=== PATIENT | female | born 1955 | race African-American/Black ===

== ENCOUNTER 2018-04-01 07:30 | Inpatient (IN) | payer OTHER, MEDICAID ==
[2018-04-01] VITALS (16 sets, daily range): BP systolic 93–235; BP diastolic 39–167
[~2018-04-01] VITALS: Ht 180.3 cm; Wt 137.9 kg
[2018-04-01] MEDS ORDERED: LACTATED RINGERS 1,000 ML IV SCH (10:15)
[2018-04-01 10:23] LABS: INR 1.1; PARTIAL THROMBOPLASTIN TIME 25.6 sec (23.4-31.0); PROTHROMBIN TIME 10.7 sec (9.1-11.1)
[2018-04-01] MEDS ORDERED: GELATIN SPONGE,COMPRESSED SZ 100 ONE (11:28)
[2018-04-01] MEDS ORDERED: BACITRACIN 50,000 UNITS/VIAL ONE (11:28)
[2018-04-01] MEDS ORDERED: THROMBIN (BOVINE) 5000 UNITS/VIAL TOP ONE (11:28)
[2018-04-01] MEDS ORDERED: NORMAL SALINE 0.9% 10 ML SYR ONE (11:28)
[2018-04-01] MEDS ORDERED: LIDOCAINE HCL/EPINEPHRINE 1%-EPI 1:100,000 20 ML VIAL ONE (11:28)
[2018-04-01] MEDS ORDERED: MORPHINE SULFATE 2 MG/ML CPJ (NOT FOR IM USE) IV PRN (12:15)
[2018-04-01] MEDS ORDERED: MIDAZOLAM HCL 2 MG/2 ML VIAL ONE (12:25)
[2018-04-01] MEDS ORDERED: FENTANYL CITRATE/PF 50MCG/ML 5ML VIAL ONE (12:25)
[2018-04-01] MEDS ORDERED: ROCURONIUM BROMIDE 10MG/ML VIAL 5ML IV ONE ×2 (12:25→12:59)
[2018-04-01] MEDS ORDERED: PROPOFOL 200MG/20ML VIAL IV ONE (12:25)
[2018-04-01] MEDS ORDERED: METOCLOPRAMIDE HCL 10MG/2ML VIAL ONE (12:57)
[2018-04-01] MEDS ORDERED: LIDOCAINE HCL/PF 1% 10 MG/ML 5ML VIAL ONE (12:57)
[2018-04-01] MEDS ORDERED: CEFAZOLIN SODIUM 1000MG/VIAL ONE (12:57)
[2018-04-01] MEDS ORDERED: DEXAMETHASONE 4MG/ML 1ML VIAL ONE (12:57)
[2018-04-01] MEDS ORDERED: HYDROMORPHONE HCL/PF 2MG/ML (OR) ONE (13:10)
[2018-04-01] MEDS ORDERED: GABA-290 PO (13:14)
[2018-04-01] MEDS ORDERED: FLUT16SP15 BOTHNSTRLS (13:14)
[2018-04-01] MEDS ORDERED: MAX PO (13:14)
[2018-04-01] MEDS ORDERED: AMLO5TAB88 PO (13:14)
[2018-04-01] MEDS ORDERED: ATOR10TA69 PO (13:14)
[2018-04-01] MEDS ORDERED: ALBU90AE IH (13:14)
[2018-04-01] MEDS ORDERED: CYCL10TA7 PO (13:14)
[2018-04-01] MEDS ORDERED: TRAM50TA3 PO (13:14)
[2018-04-01] MEDS ORDERED: BUPR75TA8 PO (13:14)
[2018-04-01] MEDS ORDERED: CETI10TA6 PO (13:14)
[2018-04-01] MEDS ORDERED: CEFAZOLIN SODIUM 1000MG/VIAL IV SCH (14:00)
[2018-04-01] MEDS ORDERED: GLYCOPYRROLATE 0.2 MG/ML 2ML VIAL ONE ×2 (14:41→15:15)
[2018-04-01] MEDS ORDERED: NEOSTIGMINE METHYLSULFATE 1MG/ML 10 ML VIAL ONE (14:41)
[2018-04-01] MEDS ORDERED: FENTANYL CITRATE/PF 50MCG/ML 2ML VIAL IV PRN (15:00)
[2018-04-01] MEDS ORDERED: ONDANSETRON HCL 4MG/2ML INJ IV PRN ×2 (15:00→16:30)
[2018-04-01] MEDS ORDERED: NALOXONE INJ IV PRN (16:15)
[2018-04-01] MEDS ORDERED: ONDANSETRON INJ IV PRN (16:15)
[2018-04-01] MEDS ORDERED: HYDROMORPHONE PCA 10MG/50ML IV PRN (16:15)
[2018-04-01 18:16] LABS: BG BASE EXCESS 2.5 mmol/L (-2.0-2.0); BG CARBOXYHEMOGLOBIN 0.4 % (0.5-1.5); BG DEOXYHEMOGLOBIN 3.4 % (0.0-5.0); BG FRACTION INSPIRED OXYGEN 50; BG HCO3 ACT 29.1 mmol/L (22.0-26.0); BG METHEMOGLOBIN 0.3 % (0.0-1.5); BG OXYGEN SATURATION 96.6 % (92.0-98.5); BG OXYHEMOGLOBIN 95.9 % (94.0-97.0); BG PCO2 53.8 mmHg (35.0-45.0); BG PH 7.351 (7.350-7.450); BG PO2 98.8 mmHg (75.0-100.0); BG PRESSURE SUPPORT 5; BG SAMPLE SITE RIGHT RADIAL; BG TOTAL HEMOGLOBIN 13.1 g/dL (12.0-18.0); BG VENT MODE VENT - CPAP
[2018-04-01] MEDS ORDERED: CEFAZOLIN 1000MG PREMIX 50 ML IV NR (19:00)
[2018-04-01] MEDS: CEFAZOLIN 1000MG PREMIX 50 ML IV SCH (22:30)
[2018-04-01] MEDS: DEXT 5%/LACTATED RINGERS 1,000 ML IV SCH (22:31)
[2018-04-02] VITALS (49 sets, daily range): BP systolic 85–173; BP diastolic 45–105
[2018-04-02] MEDS: CEFAZOLIN 1000MG PREMIX 50 ML IV SCH ×3 (04:48→20:55)
[2018-04-02] MEDS: DEXT 5%/LACTATED RINGERS 1,000 ML IV SCH ×2 (10:03→20:55)
[2018-04-02 12:23] LABS: BG BASE EXCESS 6.5 mmol/L (-2.0-2.0); BG CARBOXYHEMOGLOBIN 0.3 % (0.5-1.5); BG CPAP (cmH2O) 0 cm(H2O); BG DEOXYHEMOGLOBIN 3.2 % (0.0-5.0); BG HCO3 ACT 31.2 mmol/L (22.0-26.0); BG METHEMOGLOBIN 0.3 % (0.0-1.5); BG OXYGEN SATURATION 96.8 % (92.0-98.5); BG OXYHEMOGLOBIN 96.2 % (94.0-97.0); BG PCO2 45.2 mmHg (35.0-45.0); BG PH 7.457 (7.350-7.450); BG PO2 93.4 mmHg (75.0-100.0); BG PRESSURE SUPPORT 5; BG SAMPLE SITE RIGHT RADIAL; BG TOTAL HEMOGLOBIN 12.1 g/dL (12.0-18.0); BG VENT MODE VENT - CPAP
[2018-04-02] MEDS: AZITHROMYCIN 500 MG in DEXT 5% WATER 250 ML IV SCH (12:27)
[2018-04-02 15:44] LABS: CHLORIDE 101 mEq/L (98-107)
[2018-04-02 15:48] LABS: BASOPHILS % 0.2 % (0.0-2.0); EOSINOPHILS % 0.3 % (0.0-5.0); HEMOGLOBIN. 11.6 g/dL (12.0-16.0); LYMPHOCYTES % 8.6 % (20.0-50.0); MEAN CORPUSCULAR HEMOGLOBIN 31.1 pg (28.0-32.0); MEAN CORPUSCULAR VOLUME 91.4 fL (81.0-99.0); MEAN PLATELET VOLUME 7.6 fl (7.4-10.4); MONOCYTES % 9.5 % (2.0-8.0); NEUTROPHILS % 81.4 % (40.0-76.0); PLATELET 192 x1000/uL (130-400); RED BLOOD CELL COUNT 3.72 mill/uL (4.2-5.4)
[2018-04-02] MEDS ORDERED: POTASSIUM CHLORIDE 20MEQ/PACKET PO NR (19:45)
[2018-04-02] MEDS: MORPHINE SULFATE 4 MG/ML CPJ (NOT FOR IM USE) IV PRN (20:54)
[2018-04-02] MEDS: IPRATROPIUM/ALBUTEROL 0.5-3(2.5)MG/3ML NEB INH PRN (21:04)
[2018-04-03] VITALS (42 sets, daily range): BP systolic 85–191; BP diastolic 38–118
[2018-04-03] MEDS: DEXT 5%/LACTATED RINGERS 1,000 ML IV SCH ×2 (02:36→10:00)
[2018-04-03] MEDS: CEFAZOLIN 1000MG PREMIX 50 ML IV SCH ×3 (05:05→21:24)
[2018-04-03] MEDS: MORPHINE SULFATE 4 MG/ML CPJ (NOT FOR IM USE) IV PRN (07:16)
[2018-04-03 09:04] LABS: CHLORIDE 105 mEq/L (98-107)
[2018-04-03] MEDS: HYDROCODONE/ACETAMINOPHEN 10/325MG TABLET PO PRN ×4 (09:20→21:48)
[2018-04-03] MEDS: AZITHROMYCIN 500 MG in DEXT 5% WATER 250 ML IV SCH (09:21)
[2018-04-03 12:31] LABS: BASOPHILS % 0.1 % (0.0-2.0); EOSINOPHILS % 0.7 % (0.0-5.0); HEMATOCRIT. 29.7 % (36.0-48.0); HEMOGLOBIN. 10.5 g/dL (12.0-16.0); LYMPHOCYTES % 10.9 % (20.0-50.0); MEAN CORPUSCULAR HEMOGLOBIN 32.3 pg (28.0-32.0); MEAN CORPUSCULAR VOLUME 91.5 fL (81.0-99.0); MEAN PLATELET VOLUME 7.8 fl (7.4-10.4); MONOCYTES % 9.6 % (2.0-8.0); NEUTROPHILS % 78.7 % (40.0-76.0); PLATELET 172 x1000/uL (130-400); RED BLOOD CELL COUNT 3.24 mill/uL (4.2-5.4); RED CELL DISTRIBUTION WIDTH 15.7 % (11.6-14.6)
[2018-04-03] MEDS: GABAPENTIN 300MG CAPSULE PO SCH ×2 (13:14→21:24)
[2018-04-03] MEDS: BUPROPION HCL 75MG TABLET PO SCH (21:24)
[2018-04-03] MEDS: CLONIDINE 0.1MG TABLET PO PRN (21:48)
[2018-04-04] VITALS: BP 151/88
[2018-04-04] MEDS: MORPHINE SULFATE 4 MG/ML CPJ (NOT FOR IM USE) IV PRN ×4 (00:52→23:19)
[2018-04-04] MEDS: DEXT 5%/LACTATED RINGERS 1,000 ML IV SCH ×2 (01:20→21:16)
[2018-04-04 04:00] VITALS: BP 181/77
[2018-04-04] MEDS: CLONIDINE 0.1MG TABLET PO PRN (04:35)
[2018-04-04] MEDS: HYDROCODONE/ACETAMINOPHEN 10/325MG TABLET PO PRN ×3 (04:45→20:17)
[2018-04-04] MEDS: GABAPENTIN 300MG CAPSULE PO SCH ×3 (06:35→21:13)
[2018-04-04] MEDS: AZITHROMYCIN 500 MG in DEXT 5% WATER 250 ML IV SCH (08:58)
[2018-04-04] MEDS: BUPROPION HCL 75MG TABLET PO SCH ×2 (09:00→21:13)
[2018-04-04 12:00] VITALS: BP 143/77
[2018-04-04 16:00] VITALS: BP 150/78
[2018-04-04 20:00] VITALS: BP 138/68
[2018-04-05] VITALS: BP 147/72
[2018-04-05 04:00] VITALS: BP 146/80
[2018-04-05] MEDS: HYDROCODONE/ACETAMINOPHEN 10/325MG TABLET PO PRN ×4 (04:51→21:24)
[2018-04-05] MEDS: GABAPENTIN 300MG CAPSULE PO SCH ×3 (07:03→21:25)
[2018-04-05 08:00] VITALS: BP 122/80
[2018-04-05] MEDS: AZITHROMYCIN 500 MG in DEXT 5% WATER 250 ML IV SCH (08:46)
[2018-04-05] MEDS: BUPROPION HCL 75MG TABLET PO SCH ×2 (08:47→21:25)
[2018-04-05] MEDS: MORPHINE SULFATE 4 MG/ML CPJ (NOT FOR IM USE) IV PRN (08:58)
[2018-04-05 12:00] VITALS: BP 147/79
[2018-04-05 16:00] VITALS: BP 124/62
[2018-04-05 20:00] VITALS: BP 128/101
[2018-04-05] MEDS ORDERED: BISACODYL 5MG TABLET PO PRN (21:00)
[2018-04-06] VITALS: BP 153/91
[2018-04-06] MEDS: CLONIDINE 0.1MG TABLET PO PRN (02:05)
[2018-04-06] MEDS: HYDROCODONE/ACETAMINOPHEN 10/325MG TABLET PO PRN ×3 (02:05→22:30)
[2018-04-06 04:00] VITALS: BP 133/96
[2018-04-06] MEDS: GABAPENTIN 300MG CAPSULE PO SCH ×3 (06:02→21:47)
[2018-04-06 06:49] LABS: BASOPHILS % 0.6 % (0.0-2.0); EOSINOPHILS % 5.4 % (0.0-5.0); HEMATOCRIT. 28.9 % (36.0-48.0); HEMOGLOBIN. 10.1 g/dL (12.0-16.0); LYMPHOCYTES % 17.6 % (20.0-50.0); MEAN CORPUSCULAR HEMOGLOBIN 31.7 pg (28.0-32.0); MEAN CORPUSCULAR VOLUME 90.6 fL (81.0-99.0); MEAN PLATELET VOLUME 7.3 fl (7.4-10.4); MONOCYTES % 9.4 % (2.0-8.0); PLATELET 204 x1000/uL (130-400); RED BLOOD CELL COUNT 3.19 mill/uL (4.2-5.4); RED CELL DISTRIBUTION WIDTH 15.3 % (11.6-14.6)
[2018-04-06] MEDS ORDERED: LIDOCAINE HCL 1% 10 MG/ML 10ML VIAL ONE (06:54)
[2018-04-06 07:10] LABS: CHLORIDE 103 mEq/L (98-107)
[2018-04-06 08:00] VITALS: BP 136/73
[2018-04-06] MEDS: BUPROPION HCL 75MG TABLET PO SCH ×2 (09:59→21:47)
[2018-04-06] MEDS: DIPHENHYDRAMINE INJ IV PRN (11:52)
[2018-04-06 12:00] VITALS: BP 155/82
[2018-04-06] MEDS: MORPHINE SULFATE 4 MG/ML CPJ (NOT FOR IM USE) IV PRN (15:18)
[2018-04-06 16:00] VITALS: BP 131/66
[2018-04-06 20:00] VITALS: BP 118/67
[2018-04-06] MEDS ORDERED: KCL 20MEQ/100ML PREMIX 100 ML IV NR (21:30)
[2018-04-06] MEDS: BETHANECHOL CHLORIDE 25 MG TABLET PO SCH (21:47)
[2018-04-07] VITALS: BP 144/79
[2018-04-07 04:00] VITALS: BP 136/78
[2018-04-07] MEDS: GABAPENTIN 300MG CAPSULE PO SCH ×3 (05:26→22:02)
[2018-04-07] MEDS: BETHANECHOL CHLORIDE 25 MG TABLET PO SCH ×3 (06:15→22:02)
[2018-04-07 08:00] VITALS: BP 142/86
[2018-04-07] MEDS: BUPROPION HCL 75MG TABLET PO SCH ×2 (08:24→22:02)
[2018-04-07] MEDS: HYDROCODONE/ACETAMINOPHEN 10/325MG TABLET PO PRN ×3 (08:27→22:01)
[2018-04-07] MEDS: DEXAMETHASONE 4MG/ML 1ML VIAL IV SCH ×3 (09:59→22:01)
[2018-04-07] MEDS: MORPHINE SULFATE 4 MG/ML CPJ (NOT FOR IM USE) IV PRN (10:15)
[2018-04-07 11:17] LABS: CHLORIDE 104 mEq/L (98-107)
[2018-04-07 12:00] VITALS: BP 130/69
[2018-04-07] MEDS ORDERED: MORPHINE SULFATE 4 MG/ML CPJ (NOT FOR IM USE) IV PRN (15:30)
[2018-04-07 16:00] VITALS: BP 142/84
[2018-04-07] MEDS: DIPHENHYDRAMINE INJ IV PRN (16:46)
[2018-04-07 20:00] VITALS: BP 146/72
[2018-04-07] MEDS ORDERED: POTASSIUM CHLORIDE 10MEQ TABLET SR PO SCH (22:00)
[2018-04-08] VITALS: BP 150/92
[2018-04-08] MEDS: HYDROCODONE/ACETAMINOPHEN 10/325MG TABLET PO PRN ×4 (02:39→18:32)
[2018-04-08 04:00] VITALS: BP 137/84
[2018-04-08] MEDS: DEXAMETHASONE 4MG/ML 1ML VIAL IV SCH ×3 (05:05→17:35)
[2018-04-08] MEDS: GABAPENTIN 300MG CAPSULE PO SCH ×3 (06:44→21:45)
[2018-04-08] MEDS: BETHANECHOL CHLORIDE 25 MG TABLET PO SCH ×3 (06:45→21:45)
[2018-04-08 07:22] LABS: CHLORIDE 105 mEq/L (98-107)
[2018-04-08 08:00] VITALS: BP 137/68
[2018-04-08] MEDS: BUPROPION HCL 75MG TABLET PO SCH ×2 (08:40→21:45)
[2018-04-08] MEDS: ACETAMINOPHEN 325MG TABLET PO PRN ×2 (08:40→20:34)
[2018-04-08 12:00] VITALS: BP 128/72
[2018-04-08] MEDS: IPRATROPIUM/ALBUTEROL 0.5-3(2.5)MG/3ML NEB INH PRN (12:12)
[2018-04-08] MEDS ORDERED: BISACODYL 10MG SUPP PR PRN (12:45)
[2018-04-08] MEDS ORDERED: BISACODYL 10MG SUPP PR NR (12:45)
[2018-04-08] MEDS: ENOXAPARIN 40MG/0.4ML SYR SUBCUT SCH ×2 (14:34→21:46)
[2018-04-08 16:00] VITALS: BP 122/68
[2018-04-08] MEDS ORDERED: NYSTATIN POWDER 15GM TOP SCH (17:00)
[2018-04-08 17:40] LABS: HEMATOCRIT 33.3 % (36.0-48.0); HEMOGLOBIN 11.3 g/dL (12.0-16.0); MEAN CORPUSCULAR HEMOGLOBIN 30.8 pg (28.0-32.0); MEAN CORPUSCULAR VOLUME 90.8 fL (81.0-99.0); PLATELET 297 x1000/uL (130-400); RED BLOOD CELL COUNT 3.67 mill/uL (4.2-5.4); RED CELL DISTRIBUTION WIDTH 15.6 % (11.6-14.6)
[2018-04-08 20:00] VITALS: BP 143/72
[2018-04-08] MEDS: NYSTATIN 100,000 UNITS/GM CREAM 15GM TOP SCH (21:48)
[2018-04-08] MEDS ORDERED: IOHEXOL-350 100 ML BOTTLE ONE (22:04)
[2018-04-09] VITALS: BP 131/61
[2018-04-09 04:00] VITALS: BP 127/74
[2018-04-09] MEDS: DEXAMETHASONE 4MG/ML 1ML VIAL IV SCH (05:19)
[2018-04-09] MEDS: HYDROCODONE/ACETAMINOPHEN 10/325MG TABLET PO PRN (05:23)
[2018-04-09] MEDS: BETHANECHOL CHLORIDE 25 MG TABLET PO SCH ×2 (05:24→14:19)
[2018-04-09] MEDS: GABAPENTIN 300MG CAPSULE PO SCH ×2 (05:24→14:19)
[2018-04-09 07:33] LABS: HEMOGLOBIN. 10.8 g/dL (12.0-16.0); MEAN CORPUSCULAR HEMOGLOBIN 30.8 pg (28.0-32.0); MEAN CORPUSCULAR VOLUME 90.9 fL (81.0-99.0); RED BLOOD CELL COUNT 3.52 mill/uL (4.2-5.4); RED CELL DISTRIBUTION WIDTH 15.8 % (11.6-14.6)
[2018-04-09 08:00] VITALS: BP 143/75
[2018-04-09] MEDS: BUPROPION HCL 75MG TABLET PO SCH (08:35)
[2018-04-09] MEDS: ENOXAPARIN 40MG/0.4ML SYR SUBCUT SCH (08:35)
[2018-04-09] MEDS: NYSTATIN 100,000 UNITS/GM CREAM 15GM TOP SCH (08:36)
[2018-04-09 11:33] LABS: BG BASE EXCESS -2.2 mmol/L (-2.0-2.0); BG CARBOXYHEMOGLOBIN 0.3 % (0.5-1.5); BG DEOXYHEMOGLOBIN 3.7 % (0.0-5.0); BG FRACTION INSPIRED OXYGEN 21; BG HCO3 ACT 20.9 mmol/L (22.0-26.0); BG METHEMOGLOBIN 0.3 % (0.0-1.5); BG OXYGEN SATURATION 96.3 % (92.0-98.5); BG OXYHEMOGLOBIN 95.7 % (94.0-97.0); BG PO2 83.4 mmHg (75.0-100.0); BG SAMPLE SITE RIGHT RADIAL; BG TOTAL HEMOGLOBIN 10.9 g/dL (12.0-18.0); BG VENT MODE ROOM AIR
[2018-04-09 12:00] VITALS: BP 127/61
[2018-04-09 12:00] LABS: HEMATOCRIT 24.5 % (36.0-48.0); HEMOGLOBIN 8.3 g/dL (12.0-16.0); MEAN CORPUSCULAR HEMOGLOBIN 31.8 pg (28.0-32.0); PLATELET 229 x1000/uL (130-400); RED CELL DISTRIBUTION WIDTH 16.3 % (11.6-14.6)
[2018-04-09] MEDS ORDERED: OXYCODONE HCL/ACETAMINOPHEN 5/325MG TABLET PO PRN (12:30)
[2018-04-09] MEDS ORDERED: LORATADINE 10MG TABLET PO SCH (12:30)
[2018-04-09 13:13] LABS: PLATELET 288 x1000/uL (130-400)
[2018-04-09 13:16] LABS: NUCLEATED RED BLOOD CELLS 1 /100 WBC; PLATELET ESTIMATE NORMAL
[2018-04-09] MEDS ORDERED: LIDOCAINE HCL/PF 1% 2ML VIAL ONE (13:33)
[2018-04-09 16:00] VITALS: BP 124/69
[2018-04-09 16:04] LABS: CHLORIDE 103 mEq/L (98-107)
[2018-04-09] MEDS ORDERED: MONTELUKAST SODIUM 10MG TABLET PO SCH (17:00)
[2018-04-09] MEDS ORDERED: IPRATROPIUM/ALBUTEROL 0.5-3(2.5)MG/3ML NEB HHN SCH (18:00)
[2018-04-09] MEDS ORDERED: FAMOTIDINE 20MG TABLET PO SCH (21:00)
[2018-04-10] MEDS ORDERED: IPRATROPIUM/ALBUTEROL 0.5-3(2.5)MG/3ML NEB HHN PRN (12:45)
== END 2018-04-09 16:31 | DRG 453 ==
LOC: ORIP 09:02 → MICUNO 20:16 → 6EST 04-03 22:50
PROVIDERS: ADMIT Internal Medicine; ATTEND Internal Medicine
PROC: 0SG00AJ Fusion of Lumbar Vertebral Joint with Interbody Fusion Device, Posterior Approach, Anterior Column, Open Approach (ICD-10-PCS; 2018-04-01)
PROC: 01NB0ZZ Release Lumbar Nerve, Open Approach (ICD-10-PCS; 2018-04-01)
PROC: 01NR0ZZ Release Sacral Nerve, Open Approach (ICD-10-PCS; 2018-04-01)
PROC: 0SG30AJ Fusion of Lumbosacral Joint with Interbody Fusion Device, Posterior Approach, Anterior Column, Open Approach (ICD-10-PCS; 2018-04-01)
PROC: 0SG3071 Fusion of Lumbosacral Joint with Autologous Tissue Substitute, Posterior Approach, Posterior Column, Open Approach (ICD-10-PCS; 2018-04-01)
PROC: 0SG0071 Fusion of Lumbar Vertebral Joint with Autologous Tissue Substitute, Posterior Approach, Posterior Column, Open Approach (ICD-10-PCS; principal; 2018-04-01 12:00)
PROC: 02HV33Z Insertion of Infusion Device into Superior Vena Cava, Percutaneous Approach (ICD-10-PCS; 2018-04-06)
PROC: B548ZZA Ultrasonography of Superior Vena Cava, Guidance (ICD-10-PCS; 2018-04-06)
DX: M43.17 Spondylolisthesis, lumbosacral region (principal); R53.2 Functional quadriplegia; D68.59 Other primary thrombophilia; J45.901 Unspecified asthma with (acute) exacerbation; E66.2 Morbid (severe) obesity with alveolar hypoventilation; Z68.41 Body mass index [BMI] 40.0-44.9, adult; M47.27 Other spondylosis with radiculopathy, lumbosacral region; M47.26 Other spondylosis with radiculopathy, lumbar region; M43.16 Spondylolisthesis, lumbar region; M48.07 Spinal stenosis, lumbosacral region; M48.061 Spinal stenosis, lumbar region without neurogenic claudication; M51.17 Intervertebral disc disorders with radiculopathy, lumbosacral region; N31.2 Flaccid neuropathic bladder, not elsewhere classified; D64.9 Anemia, unspecified; I10 Essential (primary) hypertension; G62.9 Polyneuropathy, unspecified; R73.9 Hyperglycemia, unspecified; T38.0X5A Adverse effect of glucocorticoids and synthetic analogues, initial encounter; Y92.89 Other specified places as the place of occurrence of the external cause; Z90.721 Acquired absence of ovaries, unilateral; Z98.891 History of uterine scar from previous surgery; Z90.79 Acquired absence of other genital organ(s); Z91.81 History of falling; Z82.49 Family history of ischemic heart disease and other diseases of the circulatory system
CPT/HCPCS: 36415; 36569; 36600; 71045; 71275; 72100; 72131; 74018; 76937; 80048; 80053; 82375; 82805; 83036; 85007; 85025; 85027; 85379; 85610; 85730; 86850; 86900; 87086; 88304; 88311; 93970; 94002; 94003; 97116; 97162; 97166; 97530; 97535; A4216; C1725; C1893; J0456; J0690; J1100; J1170; J1200; J1650; J2250; J2270; J2405; J2704; J2710; J2765; J3010; J3480; J3490; J7030; J7040; J7050; J7060; J7120; J7620; Q9967; A4315